=== PATIENT | male | born 1995 | race Caucasian/White ===

== ENCOUNTER 2017-09-02 15:46 | Emergency (ER) | payer BC, MEDICAID ==
[2017-09-02 16:15] LABS: ABSOLUTE BASOPHILS # (AUTO) 0.1 10^3/uL (0.0-0.2); ABSOLUTE EOSINOPHILS # (AUTO) 0.1 10^3/uL (0.0-0.6); ABSOLUTE LYMPHOCYTES (AUTO) 1.8 10^3/uL (0.5-4.7); ABSOLUTE MONOCYTES (AUTO) 0.7 10^3/uL (0.1-1.4); ABSOLUTE NEUT (AUTO) 6.3 10^3/uL (1.7-8.2); BASOPHILS % (AUTO) 1.1 % (0-2); EOSINOPHILS % (AUTO) 1.6 % (0-6); HEMATOCRIT 45.9 % (37.9-51.0); HEMOGLOBIN 16.5 g/dL (13.5-17.0); HGB HCT DIFFERENCE 3.6; LYMPHOCYTES % (AUTO) 20.2 % (13-45); MEAN CORPUSCULAR HEMOGLOBIN 30.7 pg (27.0-33.4); MEAN CORPUSCULAR HGB CONC 35.9 g/dL (32.0-36.0); MEAN CORPUSCULAR VOLUME 86 fl (80-97); RED BLOOD COUNT 5.37 10^6/uL (4.35-5.55); RED CELL DISTRIBUTION WIDTH 12.8 % (11.5-14.0); SEGMENTED NEUTROPHILS % (AUTO) 69.1 % (42-78); WHITE BLOOD COUNT 9.1 10^3/uL (4.0-10.5)
[2017-09-02 16:32] LABS: ALANINE AMINOTRANSFERASE 50 U/L (21-72); ALBUMIN 4.4 g/dL (3.5-5.0); ALKALINE PHOSPHATASE 78 U/L (38-126); ANION GAP 13 (5-19); ASPARTATE AMINO TRANSFERASE 36 U/L (17-59); BILIRUBIN,DIRECT 0.1 mg/dL (0.0-0.4); BILIRUBIN,TOTAL 0.4 mg/dL (0.2-1.3); BLOOD UREA NITROGEN 14 mg/dL (7-20); CALCIUM 10.2 mg/dL (8.4-10.2); CARBON DIOXIDE 30 mmol/L (22-30); CHLORIDE 100 mmol/L (98-107); CREATININE RESULT 1.12 mg/dL (0.52-1.25); GLUCOSE 123 mg/dL (75-110); POTASSIUM 4.2 mmol/L (3.6-5.0); SODIUM 142.7 mmol/L (137-145); TOTAL PROTEIN 6.8 g/dL (6.3-8.2)
[2017-09-02 16:35] LABS: ALCOHOL < 10 mg/dL (NONE DETECTED)
[2017-09-02 17:12] LABS: ARTERIAL BLOOD O2 SATURATION 35.3 % (94-98)
[2017-09-02 17:24] LABS: APPEARANCE,URINE CLEAR; BILIRUBIN,URINE NEGATIVE (NEGATIVE); GLUCOSE, URINE NEGATIVE (NEGATIVE); KETONES,URINE NEGATIVE (NEGATIVE); LEUKOCYTE ESTERASE,URINE NEGATIVE (NEGATIVE); NITRITE,URINE NEGATIVE (NEGATIVE); PROTEIN,URINE NEGATIVE (NEGATIVE); URINE SPECIFIC GRAVITY 1.024; UROBILINOGEN,URINE NEGATIVE mg/dL (<2.0)
[2017-09-02 17:43] LABS: URINE BARBITURATES SCREEN NEGATIVE; URINE METHADONE SCREEN NEGATIVE; URINE OPIATES LOW NEGATIVE; URINE PHENCYCLIDINE SCREEN NEGATIVE
--- NOTE | 2017-09-02 17:54 | ER Document Report ---
ED Psych Disorder / Suicide - General Chief Complaint: Suicidal Ideation Stated Complaint: DIFFICULTY BREATHING Time Seen by Provider: 09/02/17 15:57 Mode of Arrival: Medic Information source: Patient, Parent, Relative - [facility] - [facility] Patient complains to provider of: Suicidal attempt Onset: Just prior to arrival Onset was: Sudden Quality of pain: No pain Suicide Risk Factors: Male, Prior suicide attempt - She was discharged from the April 2017 with a general honorable discharge. He states around that time he was having suicidal thoughts Situational problems related to: Other - Unemployed Suicide Attempt Method: Other - Please generator in car with him. Overdose of: No: Acetominophen, Alcohol, Anticholinergic, Anti-depressants, Benzodiazepine, Salicylate, Tricyclic Antidepressant, Other Normal mood: Yes Associated symptoms: Depressed, Flat affect Similar symptoms previously: Yes Recently seen / treated by doctor: No Notes: 21-year-old male presents emergency department after closing himself in his mother's vehicle with the generator. Mother drove up into the driveway and saw the patient hanging out of the car with his head out in the car door half open. A friend came and pulled him out and did CPR. - Related Data Allergies/Adverse Reactions: No Known Allergies Allergy (Verified 06/20/14 00:44) Past Medical History - General Information source: Patient - Social History Smoking Status: Current Every Day Smoker Chew tobacco use (# tins/day): No Frequency of alcohol use: None Drug Abuse: None Lives with: Family Family History: DM, Hyperlipidemia, Hypertension, Malignancy, Other - brother has severe migraines Patient has suicidal ideation: No Patient has homicidal ideation: No - Past Medical History Cardiac Medical History: Reports: None Pulmonary Medical History: Reports: None EENT Medical History: Reports: None Neurological Medical History: Reports: None Endocrine Medical History: Reports: None Renal/ Medical History: Reports: None. Denies: Hx Peritoneal Dialysis Malignancy Medical History: Reports None GI Medical History: Reports: None Musculoskeltal Medical History: Reports None Skin Medical History: Reports None Psychiatric Medical History: Reports: Hx Depression Traumatic Medical History: Reports: None Infectious Medical History: Reports: None Past Surgical History: Reports: None - Immunizations Immunizations up to date: Yes Hx Diphtheria, Pertussis, Tetanus Vaccination: Yes Review of Systems - Review of Systems Constitutional: No symptoms reported EENT: No symptoms reported Cardiovascular: No symptoms reported Respiratory: No symptoms reported Gastrointestinal: No symptoms reported Genitourinary: No symptoms reported Male Genitourinary: No symptoms reported Musculoskeletal: No symptoms reported Skin: No symptoms reported Hematologic/Lymphatic: No symptoms reported Neurological/Psychological: No symptoms reported Physical Exam - Vital signs Vitals: Resp Pulse Ox 21 H 96 09/02/17 15:49 09/02/17 15:49 - Notes Notes: PHYSICAL EXAMINATION: GENERAL: Well-appearing, well-nourished and in no acute distress. HEAD: Atraumatic, normocephalic. EYES: Pupils equal round and reactive to light, extraocular movements intact, sclera anicteric, conjunctiva are normal. ENT: Nares patent, oropharynx clear without exudates. Moist mucous membranes. NECK: Normal range of motion, supple without lymphadenopathy LUNGS: Breath sounds clear to auscultation bilaterally and equal. No wheezes rales or rhonchi. HEART: Regular rate and rhythm without murmurs ABDOMEN: Soft, nontender, nondistended abdomen. No guarding, no rebound. No masses appreciated. Musculoskeletal: Normal range of motion, no pitting or edema. No cyanosis. NEUROLOGICAL: Cranial nerves grossly intact. Normal speech, normal gait. Normal sensory, motor exams PSYCH: Normal mood, flat affect. SKIN: Warm, Dry, normal turgor, no rashes or lesions noted. Course - Re-evaluation Re-evalutation: 09/02/17 17:55 IVC papers completed 09/02/17 18:00 Spoke with poison control Roselyn. Will maintain 100% NRB for 4 hours and repeat. 09/02/17 18:25 Dr. Szymanski states transfer for hyperbaric chamber treatment. 09/02/17 18:34 Call to [facility]. Reports given to Jose. 09/02/17 18:50 DR. Garcia hyperbaric chamber attending and DR. Daley, his resident, both feel transfer is not in the best interest of the patient. They state maintain 100% oxygen for 6 hours. Pt. has no neuro deficit and VSS. 09/02/2017 I called [facility]-they stated they transfer to [place]. 09/02/17 19:34 I did call over to the transfer center [phone] [facility]. I did speak with Jessica at 1915 who took down information. Nataliya Finnegan call me back in 1924 and she did get Dr. Wolff on the line for me. At that point Dr. Wolff listen to these history and results of the labs. He states he will talk to his accounting office manager of the hyperbaric medicine department. He states this is an unusual case and he will call me back. 09/02/17 19:[address] Wolff who stated he spoke with Dr. Monique Harry and he stated hyperbaric chamber is indicated. I stated I heard that [facility] has a hyperbaric chamber and I called them but they did not. 09/02/17 20:18 Pt. is beginning to get angry and aggressive as he wants to leave. Ativan ordered. IVC papers in place. I did call Dr. Wolff back, who is the ED doctor at [facility] and he placed me on the phone with Dr. Harry. Dr. Harry states patient does need hyperbaric chamber, as long-standing neurologic sequela can result. He states even though the carboxyhemoglobin level is lower that does not indicate that the patient will not have neuro issues a few weeks out. 09/02/[address] [facility]-no hyperbaric chamber. 09/02/17 20:34 [facility] does not have 24 hour hyperbaric chamber. 09/02/17 21:00 I attempted to get acceptance from a hospital closer than [facility] but was unable to do so. Dr. Wolff accepoted. Ground transport not available until 2 am. Family and patient aware and agreeable to plan. Transfer paperwork filled out. 09/02/17 23:20 The flight test shop mechanic stated he cannot transport across state line. We attempted a call to [place] but they do not have a chamber. I called back [facility] and explained my predicament to Dr. Daley, whom I talked to earlier. He stated he will talk to his attending and get back to me. 09/02/17 23:57 I did again talk to Dr. Cote who stated that he again feels the patient does not need to be transported for hyperbaric chamber. He states that their criteria is 25% with confirm loss of consciousness and abnormal neuro exam. He states that the patient will get a huge bill with this and it will be an issue for the patient. He states he will call the milk house worker to see if they will override the diversion because they have no beds and accept this patient if I insist. I did discuss Dr. Szymanski's and Dr. Harry's views. I asked Dr. Cote to accept the patient and after approval from the milk house worker, he did. Nursing report to be called to [phone]. Nurse aware. Transfer papers updated and patient aware of plan. 09/03/17 00:04 09/03/17 00:09 - Vital Signs Vital signs: Temp Pulse Resp BP Pulse Ox 98.5 F 87 21 H 91/79 L 100 09/02/17 20:57 09/02/17 20:57 09/02/17 22:01 09/02/17 22:01 09/02/17 22:01 - Laboratory Result Diagrams: 09/02/17 15:50 09/02/17 15:50 Laboratory results interpreted by me: 09/02/17 09/02/17 09/02/17 15:50 16:30 16:30 Carbonic Acid 1.68 H ABG pCO2 55.7 H ABG pO2 22.5 L* ABG HCO3 30.2 H ABG Total CO2 31.9 H ABG O2 Saturation 35.3 L Carboxyhemoglobin 27.2 H Glucose 123 H Salicylates < 1.0 L Acetaminophen < 10 L 09/02/17 19:48 Carbonic Acid ABG pCO2 ABG pO2 ABG HCO3 ABG Total CO2 ABG O2 Saturation Carboxyhemoglobin 4.7 H Glucose Salicylates Acetaminophen - EKG Interpretation by Mn EKG shows normal: Sinus rhythm Rate: Tachycardia Critical Care Note - Critical Care Note Total time excluding time spent on procedures (mins): 60 Comments: 60 minutes of critical care time spent in direct contact evaluating and reevaluating the patient, treating symptoms, reviewing labs and studies and speaking with family and consultants excluding any procedures Discharge - Discharge Clinical Impression: Suicide attempt, Carboxyhemoglobinemia Condition: Stable Disposition: [facility]
--- NOTE | 2017-09-02 18:22 | PSYCHOLOGICAL NOTE ---
Psych Note - Psych Note Psych Note: Pt presents to the ED via EMS. Pt was reported to have been unresponsive at the scene. Per EMS, pt was found outside of his vehicle in which he had " hooked up a generator, turned it on with all of the windows up." Per pt's mother, pt was reported to have texted the mother stating, "Sorry for all I have done. I am a fuck-up" and texted ara. Pt's mother tried to reach the pt via cell phone with no success. Pt was then found by the pt's fiance's father in which 1- 2 minute round of CPR was established with ROSC. En route, pt's GCS was 15 and CO2 was 52 along with O2 saturation of 99%. Pt was reported he left the [employer] in 04/2017 and may be suffering with stress. Pt was given an 18g IV to the [facility]. At the time of the assessment pt has been alert and able to speak in full sentences. Pt denies any chest pain, headache and or any other complications. Patient disclosed that he was "tired and stressed." Patient stated that he did "change his mind was trying to get out" of the vehicle; however he passed out before he could. He continued to state that he is thought of suicide once before before he got out of the [employer]; no previous attempts. Patient confirms he is unemployed however states that he does have a place to live with his fiance. Patient states he was in the [employer] for 2-1/2 years however was generally discharged administration separation for failing to adapt. 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 Patient continued to spiral and now has started talking about friends that his father has never even heard of (patient grew up in [place]). Patient is alert and orientated to person, place, time and circumstance. Mood is dysphoric with flat affect. Patient endorses suicidal ideation with attempts. Patient denies homicidal ideation. Delusions are absent behaviors congruent with intact reality based presentation i.e. organized, rational thinking. Conversational speech was within normal rate, tone and prosody. Eye contact was well-maintained. Intellectual abilities appear to be within the average range. Attention and concentration are good. Insight, judgment, impulse control is poor. 311 (F32.9) unspecified depressive disorder Impression\\plan: Patient is recommended for IVC. Patient disclosed attempted suicide by hooking up a generator so the exhaust went into the vehicle (windows were up). Patient stated that he did start to have second thoughts and was attempting to get out of the vehicle however passed out before he could get all the way out. 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 Patient will be reevaluated. Dr. Aragon was consulted and the care management of this patient; attending physician in agreement with recommendations and disposition. Patient transferred to [place] for Medical
--- NOTE | 2017-09-02 18:30 | EKG REPORT ---
SEVERITY:- BORDERLINE ECG - SINUS TACHYCARDIA BORDERLINE T ABNORMALITIES, INFERIOR LEADS : Confirmed by: Manuel Smith MD 02-Sep-2017 18:30:03
[2017-09-02] MEDS ORDERED: LORAZEPAM INJ 2 MG/1 ML VIAL IV ONE (20:12)
[2017-09-03 01:51] VITALS: BP 103/59
== END 2017-09-03 02:00 | disposition short-term general hospital (02) ==
LOC: ER 15:46
DX: T59.7X2A Toxic effect of carbon dioxide, intentional self-harm, initial encounter (principal); Y92.810 Car as the place of occurrence of the external cause; R00.0 Tachycardia, unspecified; F17.200 Nicotine dependence, unspecified, uncomplicated
CPT/HCPCS: 93005; 99291; 96374; 36415; 82375; 80307 ×4; 82803; 85025; 80053; 81001; 93010; J2060

== ENCOUNTER 2019-02-28 13:32 | Emergency (ER) | payer BC ==
--- NOTE | 2019-02-28 17:27 | PSYCHOLOGICAL NOTE ---
Psych Note - Psych Note Date seen by psych provider: 02/28/19 Psych Note: Presenting problem: IV heroin use x 4.5 months, recent use of speed ball 2 days ago which caused hours of mood lability. Patient presented with red glossy eyes and heavy eye lids. Patient present with father and family friend. Wants detox. Observed track mccallum to left inside arm, he noted he had been clean for a month after father helped him detox he and father admitted to an OD 2 months ago (patient noted he shot up less than normal but it had Fentanyl in it, friends had to perform CPR and Narcan was utilized). Talked about wanting to be here for his 8 month old daughter. 2 years ago was hospitalized at [place] for SI attempt via hooked up generator to truck and had to be in hyper baric chamber for 2 weeks. He denied current SI and admitted to using heroin to get high and due to depression. Diagnosis: Opioid Use Disorder, Severe Unspecified Depressive Disorder Impression/Plan: Patient is cleared from acute psychiatric services. He denied SI/HI and no observed psychosis. He said he wanted detox. He gave verbal consent to make referral to [facility] ([facility]). Provided referral to [facility] at [facility]. Patient's father confirmed [facility] contacted him and patient has been accepted so he will be taking patient directly to [facility] from [facility] ED once discharged. Provided patient and fatehr with the general 1-800 number to [facility] as well as direct contact to [facility]. Consulted with Dr. Aragon regarding the management and care of patient. ED Physician in agreement with recommendations.
--- NOTE | 2019-02-28 18:10 | RADIOLOGY REPORT (SQ) ---
EXAM DESCRIPTION: ANKLE RIGHT COMPLETE COMPLETED DATE/TIME: 02/28/2019 5:54 pm REASON FOR STUDY: pain, fall, TTP 10 cm above lateral malleolus COMPARISON: None. NUMBER OF VIEWS: Three views. TECHNIQUE: AP, lateral, and oblique radiographic images acquired of the right ankle. LIMITATIONS: None. FINDINGS: MINERALIZATION: Normal. BONES: No acute fracture or dislocation. No worrisome bone lesions. JOINTS: No effusions. SOFT TISSUES: No soft tissue swelling. No foreign body. OTHER: No other significant finding. IMPRESSION: NEGATIVE STUDY OF THE RIGHT ANKLE. NO RADIOGRAPHIC EVIDENCE OF ACUTE INJURY. TECHNICAL DOCUMENTATION: JOB ID: [id number] [employer]- All Rights Reserved Reading location - IP/workstation name: [email or web address]
--- NOTE | 2019-02-28 18:14 | RADIOLOGY REPORT (SQ) ---
EXAM DESCRIPTION: HAND RIGHT 3 VIEWS COMPLETED DATE/TIME: 02/28/2019 5:54 pm REASON FOR STUDY: pain, fall, pain to 4th and 5th metacarpals COMPARISON: 05/24/2014 EXAM PARAMETERS: NUMBER OF VIEWS: Three views. TECHNIQUE: AP, lateral and oblique radiographic images acquired of the right hand. LIMITATIONS: None. FINDINGS: MINERALIZATION: Normal. BONES: No acute fracture or dislocation. No worrisome bone lesions. JOINTS: No effusions. SOFT TISSUES: No soft tissue swelling. No foreign body. OTHER: No other significant finding. IMPRESSION: NEGATIVE STUDY OF THE RIGHT HAND. NO RADIOGRAPHIC EVIDENCE OF ACUTE INJURY. TECHNICAL DOCUMENTATION: JOB ID: [id number] [employer]- All Rights Reserved Reading location - IP/workstation name: [email or web address]
[2019-02-28 18:27] LABS: ABSOLUTE BASOPHILS # (AUTO) 0.1 10^3/uL (0.0-0.2); ABSOLUTE EOSINOPHILS # (AUTO) 0.3 10^3/uL (0.0-0.6); ABSOLUTE LYMPHOCYTES (AUTO) 2.1 10^3/uL (0.5-4.7); ABSOLUTE MONOCYTES (AUTO) 1.1 10^3/uL (0.1-1.4); BASOPHILS % (AUTO) 1.4 % (0-2); EOSINOPHILS % (AUTO) 2.9 % (0-6); HEMATOCRIT 35.6 % (37.9-51.0); HEMOGLOBIN 12.2 g/dL (13.5-17.0); LYMPHOCYTES % (AUTO) 21.5 % (13-45); MEAN CORPUSCULAR HEMOGLOBIN 28.7 pg (27.0-33.4); MEAN CORPUSCULAR HGB CONC 34.4 g/dL (32.0-36.0); MEAN CORPUSCULAR VOLUME 83 fl (80-97); MONOCYTES % (AUTO) 11.3 % (3-13); PLATELET COUNT 336 10^3/uL (150-450); RED BLOOD COUNT 4.26 10^6/uL (4.35-5.55); RED CELL DISTRIBUTION WIDTH 13.6 % (11.5-14.0); SEGMENTED NEUTROPHILS % (AUTO) 62.9 % (42-78); TOTAL CELLS COUNTED % (AUTO) 100 %; WHITE BLOOD COUNT 9.6 10^3/uL (4.0-10.5)
[2019-02-28 18:45] LABS: ALANINE AMINOTRANSFERASE 220 U/L (21-72); ALBUMIN 4.1 g/dL (3.5-5.0); ALKALINE PHOSPHATASE 83 U/L (38-126); ANION GAP 10 (5-19); ASPARTATE AMINO TRANSFERASE 109 U/L (17-59); BILIRUBIN,DIRECT 0.3 mg/dL (0.0-0.4); BILIRUBIN,TOTAL 1.1 mg/dL (0.2-1.3); BLOOD UREA NITROGEN 11 mg/dL (7-20); CALCIUM 9.4 mg/dL (8.4-10.2); CARBON DIOXIDE 28 mmol/L (22-30); CHLORIDE 100 mmol/L (98-107); GLUCOSE 80 mg/dL (75-110); POTASSIUM 3.8 mmol/L (3.6-5.0); SODIUM 137.5 mmol/L (137-145); TOTAL PROTEIN 6.6 g/dL (6.3-8.2)
[2019-02-28 18:47] LABS: ACETAMINOPHEN < 10 ug/mL (10-30); ALCOHOL < 10 mg/dL (NONE DETECTED); SALICYLATE < 1.0 mg/dL (2.0-20.0)
[2019-02-28 19:49] LABS: APPEARANCE,URINE SLIGHTLY-CLOUDY; BILIRUBIN,URINE NEGATIVE (NEGATIVE); GLUCOSE, URINE NEGATIVE (NEGATIVE); KETONES,URINE TRACE mg/dL (NEGATIVE); LEUKOCYTE ESTERASE,URINE NEGATIVE (NEGATIVE); NITRITE,URINE NEGATIVE (NEGATIVE); PROTEIN,URINE NEGATIVE (NEGATIVE); URINE SPECIFIC GRAVITY 1.023
[2019-02-28 19:52] LABS: COLOR,URINE YELLOW
[2019-02-28 20:00] LABS: URINE BARBITURATES SCREEN NEGATIVE; URINE BENZODIAZEPINES SCREEN NEGATIVE; URINE COCAINE SCREEN UNCONFIRMED POSITIVE; URINE MARIJUANA (THC) SCREEN UNCONFIRMED POSITIVE; URINE METHADONE SCREEN NEGATIVE; URINE PHENCYCLIDINE SCREEN NEGATIVE
[2019-02-28 20:52] VITALS: BP 126/72
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
--- NOTE | 2019-03-02 07:47 | EKG REPORT ---
SEVERITY:- BORDERLINE ECG - SINUS RHYTHM SHORT IA INTERVAL, ACCELERATED AV CONDUCTION BORDERLINE PROLONGED QT INTERVAL : Confirmed by: Catarina Robbins MD 02-Mar-2019 07:46:53
== END 2019-02-28 20:52 | disposition home or self-care (01) ==
LOC: ER 13:32
DX: F11.10 Opioid abuse, uncomplicated (principal); F14.10 Cocaine abuse, uncomplicated; F32.9 Major depressive disorder, single episode, unspecified; M79.641 Pain in right hand; W19.XXXA Unspecified fall, initial encounter; Y93.89 Activity, other specified; M25.571 Pain in right ankle and joints of right foot; F17.210 Nicotine dependence, cigarettes, uncomplicated; D64.9 Anemia, unspecified; R74.0 Nonspecific elevation of levels of transaminase and lactic acid dehydrogenase [LDH]
CPT/HCPCS: 36415; 80053; 80307; 81001; 85025; 93005; 93010; 99284

== ENCOUNTER → 2019-08-16 | Outpatient (CLI) | payer BC ==
[2019-08-16 17:06] LABS: INTERNATIONAL RATION (INR) 1.01; PROTHROMBIN TIME 13.3 SEC (11.4-15.4)
== END ==
LOC: LAB 16:29
PROVIDERS: ATTEND Internal Medicine Gastroenterology
DX: B19.20 Unspecified viral hepatitis C without hepatic coma (principal)
CPT/HCPCS: 36415; 82172; 82247; 82977; 83010; 83883; 84460; 85610; 87522

== ENCOUNTER → 2020-02-27 | Outpatient (CLI) | payer BC | LOC: OD 09:32 | PROVIDERS: ATTEND Internal Medicine Gastroenterology | DX: B18.2 Chronic viral hepatitis C (principal) | CPT/HCPCS: 36415; 87522 ==